=== PATIENT | male | born 1985 | race Caucasian/White ===

== ENCOUNTER 2021-02-04 09:22 | Emergency (ER) | payer SELFPAY ==
[~2021-02-04] VITALS: Ht 172.7 cm; Wt 147.4 kg
[2021-02-04] MEDS ORDERED: PREDNISONE20 MG PO (09:54)
[2021-02-04] MEDS ORDERED: DOXYCYCLINE HY100 MG PO (09:54)
[2021-02-04] MEDS ORDERED: PROAIR HFA INH8.5 GM IH (09:59)
== END 2021-02-04 10:19 | disposition home or self-care (01) ==
LOC: ER 09:29
DX: R05 Cough (principal); J40 Bronchitis, not specified as acute or chronic; I10 Essential (primary) hypertension
CPT/HCPCS: 99283